=== PATIENT | male | born 1955 | race American Indian/Alaskan Native ===

== ENCOUNTER 2022-02-23 04:03 | Emergency (ER) | payer BC, OTHER | END 2022-02-23 04:43 | LOC: JP.ED 04:03 | DX: F10.929 Alcohol use, unspecified with intoxication, unspecified (principal); E78.00 Pure hypercholesterolemia, unspecified; I10 Essential (primary) hypertension; M10.9 Gout, unspecified; Z88.5 Allergy status to narcotic agent; Z79.899 Other long term (current) drug therapy | CPT/HCPCS: 99283 ==